=== PATIENT | female | born 1985 | race Caucasian/White ===

== ENCOUNTER 2019-04-27 18:28 | Emergency (ER) | payer MEDICAID ==
[~2019-04-27] VITALS: Ht 162.6 cm; Wt 53.0 kg
[2019-04-28 00:19] LABS: CLARITY URINE CLEAR (CLEAR); COLOR URINE YELLOW (YELLOW); KETONES URINE NEGATIVE (NEGATIVE); LEUKOCYTE ESTERASE URINE NEGATIVE (NEGATIVE); NITRITE URINE NEGATIVE (NEGATIVE); OCCULT BLOOD URINE 2+ (NEGATIVE); PROTEIN URINE 1+ (NEGATIVE); SPECIFIC GRAVITY URINE 1.031 (1.005-1.030)
[2019-04-28 01:13] VITALS: BP 121/78
== END 2019-04-28 01:14 | disposition home or self-care (01) ==
LOC: ER 18:28
DX: J11.1 Influenza due to unidentified influenza virus with other respiratory manifestations (principal); R03.0 Elevated blood-pressure reading, without diagnosis of hypertension
CPT/HCPCS: 81003; 81025; 99283